=== PATIENT | male | born 1970 | race Caucasian/White ===

== ENCOUNTER 2018-07-10 13:56 | Outpatient (CLI) | payer OTHER ==
[2018-03-27 15:19] VITALS: O2SAT 97
[2018-07-10 15:06] LABS: CRP INFLAMMATORY 0.23 mg/dl (0.00-0.33); URIC ACID 8.6 mg/dl (2.6-7.2)
[2018-07-10 15:38] LABS: BASOPHILS % (AUTO) 1 % (0-3); EOSINOPHILS % (AUTO) 4 % (0-9); HEMATOCRIT 52 % (39-53); HEMOGLOBIN 17.9 gm/dl (13.5-17.7); LYMPHOCYTES % (AUTO) 21.9 % (10-50); MEAN CORPUSCULAR HEMOGLOBIN 31.3 pg (27.0-32.0); MEAN CORPUSCULAR HGB CONC 34.4 gm/dl (32.0-36.0); MEAN CORPUSCULAR VOLUME 91 fL (80-100); MONOCYTES % (AUTO) 7.9 % (0-12); NEUTROPHILS % (AUTO) 64.4 % (37-80)
[2018-07-10 15:56] LABS: SEDIMENTATION RATE 0 mm/hr (0-15)
[2018-07-11 08:37] LABS: *LYME DISEASE SCREEN Negative (Negative)
[2018-07-13 07:40] LABS: *CYCLIC CITRULLINATE PEPTIDE <15.6 U
== END 2018-07-10 13:57 | disposition home or self-care (01) | DRG 556 ==
LOC: CONVCARE 13:56
PROVIDERS: ATTEND Orthopaedic Surgery
DX: M25.562 Pain in left knee (principal); M12.862 Other specific arthropathies, not elsewhere classified, left knee
CPT/HCPCS: 36415; 84550; 85025; 85651